=== PATIENT | male | born 1960 | race Caucasian/White ===

== ENCOUNTER → 2016-12-08 08:16 | Outpatient (CLI) | payer OTHER ==
[~2016-12-08 08:16] MED LIST: IPRAT-ALBUT 0.5-3 ML UPD; LEVAQUIN500 MG PO; LISINOPRIL-HCTZ1 T11 PO; MUCINEX DM ER1 EAC1 PO; SINGULAIR10 MG PO; SYNTHROID50 MCG PO; TESSALON PERLE100 MG PO
== END | disposition home or self-care (01) ==
LOC: D.RT 08:16
DX: J44.9 Chronic obstructive pulmonary disease, unspecified (principal)

== ENCOUNTER → 2018-03-05 07:32 | Outpatient (CLI) | payer OTHER ==
[2015-04-20 13:38] VITALS: BMI 26.6
== END | disposition home or self-care (01) ==
LOC: D.RT 07:32
DX: J44.9 Chronic obstructive pulmonary disease, unspecified (principal)